=== PATIENT | female | born 1965 | race Caucasian/White ===

== ENCOUNTER 2021-02-14 17:02 | Observation (INO) | payer OTHER ==
[~2021-02-14] VITALS: Ht 170.2 cm; Wt 68.9 kg
[2021-02-14] MEDS ORDERED: ASPIRIN 81 MG TABLET CHEW ONE (17:22)
[2021-02-14] MEDS ORDERED: PLEASE ENTER HEIGHT AND WEIGHT MC SCH (17:30)
[2021-02-14] MEDS ORDERED: PLEASE ENTER ALLERGIES MC SCH (17:30)
[2021-02-14] MEDS ORDERED: ASPIRIN 81 MG TABLET CHEW PO ONE (18:00)
[2021-02-14 18:25] LABS: BASOPHILS % (AUTO) 1 % (0-1); EOSINOPHILS % (AUTO) 2 % (1-7); LYMPHOCYTES % (AUTO) 35 % (22-44); MEAN CORPUSCULAR HEMOGLOBIN 31.2 pg (27.0-34.8); MEAN CORPUSCULAR HGB CONC 34.4 g/dL (32.4-35.8); MONOCYTES % (AUTO) 6 % (2-9); NEUTROPHILS % (AUTO) 57 % (42-75); PLATELET COUNT 197 x10^3/uL (130-400); RED BLOOD COUNT 4.28 x10^6/uL (3.82-5.3); RED CELL DISTRIBUTION WIDTH 12.9 % (9.6-15.2)
[2021-02-14 18:36] LABS: ALBUMIN 3.5 g/dL (3.4-5.0); ANION GAP 6 mmol/L (5-15); CALCIUM 8.7 mg/dL (8.5-10.1); CHLORIDE 110 mmol/L (98-107)
--- NOTE | 2021-02-14 18:36 | NUR ---
Pt stated that she felt mildly dizzy while laying down. Ortho VS done. Stable.
[2021-02-14 18:41] LABS: ALANINE AMINOTRANSFERASE 18 U/L (12-78); ALKALINE PHOSPHATASE 50 U/L (45-117); BILIRUBIN,TOTAL 0.3 mg/dL (0.2-1.0); CREATININE 0.68 mg/dL (0.55-1.02); TOTAL PROTEIN 7.7 g/dL (6.4-8.2); TROPONIN I < 0.015 ng/mL (0.000-0.045)
--- NOTE | 2021-02-14 19:14 | NUR ---
Bedside report to MALU Richardson and MALU Salazar.
--- NOTE | 2021-02-14 19:44 | NUR ---
at bedside for re-eval.
[2021-02-14] MEDS ORDERED: NITROGLYCERIN SINGLE TAB 0.4 MG SL ONE (19:54)
[2021-02-14] MEDS ORDERED: NITROGLYCERIN 0.4 MG BOTTLE (25 TABS) SL PRN ×2 (20:00→20:30)
--- NOTE | 2021-02-14 20:22 | NUR ---
Attempted report x1. MALU Díaz states she will call back in 5 min.
[2021-02-14] MEDS ORDERED: OXYcodone IR 5MG TABLET PO PRN (20:30)
[2021-02-14] MEDS ORDERED: METHOCARBAMOL 500 MG TABLET PO PRN (20:30)
[2021-02-14] MEDS ORDERED: ENALAPRILAT 1.25 MG/ML, 2ML IVPush PRN (20:30)
[2021-02-14] MEDS ORDERED: GUAIFENESIN/DM 200-20MG, 10ML UDC PO PRN (20:30)
[2021-02-14] MEDS ORDERED: ENOXAPARIN 40 MG/0.4 ML SQ SCH (20:30)
[2021-02-14] MEDS ORDERED: ACETAMINOPHEN 325 MG TABLET PO PRN (20:30)
[2021-02-14] MEDS ORDERED: ZOLPIDEM 5MG TABLET PO PRN (20:30)
[2021-02-14] MEDS ORDERED: NITROGLYCERIN 0.4 MG/SPRAY SL PRN (20:30)
[2021-02-14] MEDS ORDERED: DOCUSATE 100 MG CAPSULE PO PRN (20:30)
[2021-02-14] MEDS ORDERED: morphine SULFATE 10 MG/ML, 1ML IVPush PRN (20:30)
[2021-02-14] MEDS ORDERED: ONDANSETRON 2MG/ML, 2ML IVPush PRN (20:30)
--- NOTE | 2021-02-14 20:37 | NUR ---
Attempted to call report x2. MALU Díaz is unavaliable to take report as she is transporting a patient at this time.
--- NOTE | 2021-02-14 20:40 | NUR ---
Patient denies KRISHNA after nitro. Updated patient on plan of care. Denies needs at this time. Will continue to monitor.
--- NOTE | 2021-02-14 20:54 | NUR ---
Pt to be admitted to [facility], room 521-2 . Report called to MALU Díaz
[2021-02-14 21:52] VITALS: BP 117/74
[2021-02-14 23:59] LABS: TROPONIN I 0.017 ng/mL (0.000-0.045)
[2021-02-15 01:15] VITALS: BP 121/69
[2021-02-15 04:58] LABS: BASOPHILS % (AUTO) 1 % (0-1); EOSINOPHILS % (AUTO) 2 % (1-7); LYMPHOCYTES % (AUTO) 39 % (22-44); MEAN CORPUSCULAR HEMOGLOBIN 31.4 pg (27.0-34.8); MEAN CORPUSCULAR HGB CONC 34.8 g/dL (32.4-35.8); MEAN PLATELET VOLUME 10.8 fL (7.4-10.4); MONOCYTES % (AUTO) 6 % (2-9); NEUTROPHILS % (AUTO) 52 % (42-75); PLATELET COUNT 186 x10^3/uL (130-400); RED BLOOD COUNT 4.09 x10^6/uL (3.82-5.3); RED CELL DISTRIBUTION WIDTH 12.5 % (9.6-15.2)
[2021-02-15 05:11] LABS: ANION GAP 6 mmol/L (5-15); CALCIUM 8.8 mg/dL (8.5-10.1); CHLORIDE 111 mmol/L (98-107)
[2021-02-15 05:18] LABS: CREATININE 0.72 mg/dL (0.55-1.02); TROPONIN I 0.016 ng/mL (0.000-0.045)
[2021-02-15 07:18] VITALS: BP 116/78
[2021-02-15] MEDS ORDERED: POTASSIUM CHLORIDE 20 MEQ TAB.ER.PRT PO ONE (07:30)
[2021-02-15] MEDS ORDERED: REGADENOSON 0.4 MG/5 ML SYRINGE ONE (10:42)
[2021-02-15 13:29] VITALS: BP 107/74
== END 2021-02-15 16:40 | disposition home or self-care (01) ==
LOC: ED 17:32 → INTOOBSV 19:50 → EDIP 19:50 → 5SO 21:19
PROVIDERS: ADMIT Internal Medicine; ATTEND Family Medicine
DX: R07.89 Other chest pain (principal); E87.8 Other disorders of electrolyte and fluid balance, not elsewhere classified; I49.1 Atrial premature depolarization; Z98.82 Breast implant status; Z79.899 Other long term (current) drug therapy
CPT/HCPCS: 36415; 71045; 78452; 80048; 80053; 83690; 83880; 84484; 85025; 93005; 93017; 93306; 96372; 99285; A9502; C9898; G0378; J1650; J2785